=== PATIENT | male | born 1955 | race Caucasian/White ===

== ENCOUNTER 2019-12-20 08:26 | Emergency (ER) | payer OTHER ==
[2019-12-20] MEDS ORDERED: Sodium Chloride 0.9% 10 ML Syringe FLUSH PRN (08:35)
[2019-12-20] MEDS ORDERED: Sodium Chloride 0.9% 1,000 ML IV SCH (08:45)
--- NOTE | 2019-12-20 10:19 | EDM.PDOC ---
ED HPI GENERAL MEDICAL PROBLEM - General Chief Complaint: Neuro Symptoms/Deficits Stated Complaint: SOB/STROKE SYMPTOMS Time Seen by Provider: 12/20/19 08:35 Source of Information: Reports: Patient, Family History Limitations: Reports: Altered Mental Status - History of Present Illness INITIAL COMMENTS - FREE TEXT/NARRATIVE: The patient presents by taxi cab from [place]. The driver utility worker said the patient's called and arranged for him to bring the patient to the hospital. My nurse called his and she said he has not felt right since September. At that time he was checked for COVID 19 and it was negative. He still has not felt right and this past few weeks he was in higher elevation in [place] and [place]. Now he is in lower elevations and is still not feeling right. She did not here from him all day yesterday and usually he will call his son or her. This morning he texted and said he did not feel right this morning. She then arranged transport to the hospital. When he arrived he was sleepy and did not answer questions well. He was weak all over. My nurse thought he may have had some left sided facial droop but when I examined him that was gone. He said he did have chest pain for the past 3 days. I did a sternal rub to wake him up and he said that made it worse. He has no health problems and he is not on any medications. He does have a cough but denies fever. He has no abdominal pain, nausea, vomiting or diarrhea. Onset: Gradual Duration: Day(s): Location: Reports: Chest Quality: Reports: Sharp Severity: Mild Improves with: Reports: None Worsens with: Reports: None Associated Symptoms: Reports: Chest Pain, Cough. Denies: Fever/Chills, Headaches, Nausea/Vomiting, Shortness of Breath Right Chest Pain Score (Numeric/FACES): 5 - Related Data Allergies Allergy/AdvReac Type Severity Reaction Status Date / Time Unable to Assess Allergy Unverified 12/20/19 08:43 Home Meds: Home Meds . [Unable to Verify Home Med List] 12/20/19 [History] Past Medical History - Infectious Disease History Infectious Disease History: Reports: Novel Coronavirus Social & Family History - Tobacco Use Tobacco Use Status *Q: Never Tobacco User - Recreational Drug Use Recreational Drug Use: No ED ROS GENERAL - Review of Systems Review Of Systems: See Below Constitutional: Reports: Malaise, Weakness, Fatigue. Denies: Fever, Chills HEENT: Reports: No Symptoms Respiratory: Reports: Cough. Denies: Shortness of Breath Cardiovascular: Reports: Chest Pain Endocrine: Reports: Fatigue GI/Abdominal: Reports: No Symptoms : Reports: No Symptoms ED EXAM, NEURO - Physical Exam Exam: See Below Exam Limited By: No Limitations General Appearance: Alert, No Apparent Distress Ears: Normal External Exam Nose: Normal Inspection Head Exam: Atraumatic, Normocephalic Neck: Normal Inspection Respiratory/Chest: No Respiratory Distress, Lungs Clear, Normal Breath Sounds Cardiovascular: Regular Rate, Rhythm, No Edema, No Murmur GI/Abdominal: Soft, Non-Tender, No Organomegaly, No Mass Neurological: Alert, No Motor/Sensory Deficits, Oriented x 3 #1 Interpretation EKG Date: 12/20/19 Time: 08:45 Rhythm: NSR Rate (Beats/Min): 79 [place]: Normal P-Wave: Present QRS: Normal ST-T: Normal QT: Normal Course - Vital Signs Last Recorded V/S: Last Vital Signs Temp 97.9 F 12/20/19 08:38 Pulse 85 12/20/19 08:38 Resp 16 12/20/19 08:38 BP 171/113 H 12/20/19 08:38 Pulse Ox 95 12/20/19 08:38 - Orders/Labs/Meds Orders: Active Orders 24 hr Category Date Time Status Cardiac Monitoring [RC] . DIRECTED Care 12/20/19 08:35 Active EKG Documentation Completion [RC] STAT Care 12/20/19 08:36 Active Insert Concepcion Catheter [Insert Urinary Catheter] [OM.PC] Care 12/20/19 09:15 Ordered Stat Oxygen Therapy [RC] PRN Care 12/20/19 08:35 Active Peripheral IV Care [RC] . DIRECTED Care 12/20/19 08:36 Active Urinary Catheter Assessment [RC] ASDIRECTED Care 12/20/19 09:15 Active Chest 1V Frontal [CR] Stat Exams 12/20/19 08:36 Taken Head wo Cont [CT] Stat Exams 12/20/19 08:36 Taken CULTURE BLOOD [BC] Stat Lab 12/20/19 09:00 Received CULTURE BLOOD [BC] Stat Lab 12/20/19 09:05 Received Sodium Chloride 0.9% [Normal Saline] 1,000 ml Med 12/20/19 08:45 Active IV ASDIRECTED Sodium Chloride 0.9% [Saline Flush] Med 12/20/19 08:35 Active 10 ml FLUSH ASDIRECTED PRN Blood Culture x2 Reflex Set [OM.PC] Stat Ot 12/20/19 08:37 Ordered Peripheral IV Insertion Adult [OM.PC] Stat Oth 12/20/19 08:35 Ordered Medication Orders Sodium Chloride (Normal Saline) 1,000 mls @ 125 mls/hr IV ASDIRECTED JYOTI Last Admin: 12/20/19 08:47 Dose: 125 mls/hr Documented by: DAMI Sodium Chloride (Saline Flush) 10 ml FLUSH ASDIRECTED PRN PRN Reason: Keep Vein Open Last Admin: 12/20/19 08:47 Dose: 10 ml Documented by: DAMI Labs: Laboratory Tests 12/20/19 12/20/19 12/20/19 Range/Units 08:35 08:35 08:35 WBC 4.67 (4.23-9.07) K/mm3 RBC 5.30 (4.63-6.08) M/mm3 Hgb 15.9 (13.7-17.5) gm/dl Hct 47.6 (40.1-51.0) % MCV 89.8 (79.0-92.2) fl MCH 30.0 (25.7-32.2) pg MCHC 33.4 (32.2-35.5) g/dl RDW Std Deviation 44.2 H (35.1-43.9) fL Plt Count 164 (163-337) K/mm3 MPV 9.7 (9.4-12.3) fl Neut % (Auto) 51.7 (34.0-67.9) % Lymph % (Auto) 23.3 (21.8-53.1) % [place] % (Auto) 22.9 H (5.3-12.2) % Eos % (Auto) 1.3 (0.8-7.0) Baso % (Auto) 0.6 (0.1-1.2) % Neut # (Auto) 2.41 (1.78-5.38) K/mm3 Lymph # (Auto) 1.09 L (1.32-3.57) K/mm3 [place] # (Auto) 1.07 H (0.30-0.82) K/mm3 Eos # (Auto) 0.06 (0.04-0.54) K/mm3 Baso # (Auto) 0.03 (0.01-0.08) K/mm3 Manual Slide Review Normal smear PT 11.2 (9.7-12.0) SECONDS INR 1.05 APTT 28.9 (21.7-31.4) SECONDS D-Dimer, Quantitative 1.09 H (0.19-0.50) mg/L Sodium 139 (136-145) mEq/L Potassium 4.3 (3.5-5.1) mEq/L Chloride 105 (98-107) mEq/L Carbon Dioxide 25 (21-32) mEq/L Anion Gap 13.3 (5-15) BUN 13 (7-18) mg/dL Creatinine 1.2 (0.7-1.3) mg/dL Est Cr Clr Drug Dosing TNP Estimated GFR (MDRD) > 60 (>60) mL/min BUN/Creatinine Ratio 10.8 L (14-18) Glucose 135 H (80-115) mg/dL Lactic Acid (0.4-2.0) mmol/L Calcium 8.8 (8.5-10.1) mg/dL Magnesium 1.8 (1.8-2.4) mg/dl Ferritin (26-388) ng/ml Total Bilirubin 0.4 (0.2-1.0) mg/dL AST 18 (15-37) U/L ALT 33 (16-63) U/L Alkaline Phosphatase 98 (46-116) U/L Lactate Dehydrogenase 135 (85-227) U/L Troponin I < 0.017 (0.00-0.056) ng/mL C-Reactive Protein 1.0 (<1.0) mg/dL Total Protein 7.0 (6.4-8.2) g/dl Albumin 3.7 (3.4-5.0) g/dl Globulin 3.3 gm/dL Albumin/Globulin Ratio 1.1 (1-2) TSH 3rd Generation (0.358-3.74) uIU/mL Urine Opiates Screen (WVZBYJ=300) Ur Buprenorphine Scrn (CUTOFF=10) Ur Oxycodone Screen (UZA4RU=793) Urine Methadone Screen (QWE4BL=519) Ur Propoxyphene Screen (NOHIAE=597) Ur Barbiturates Screen (QMRPTK=324) Ur Tricyclics Screen (YTSYGO=549) Ur Phencyclidine Scrn (CUTOFF=25) Ur Amphetamine Screen (DUENFX=624) U Methamphetamines Scrn (DJQVKK=583) U Benzodiazepines Scrn (IPAFKZ=858) U Cocaine Metab Screen (ODADZS=420) U Marijuana (THC) Screen (CUTOFF=50) Ethyl Alcohol 0.00 (0.00) gm% SARS-CoV-2 RNA (LEXI) (NEGATIVE) 12/20/19 12/20/19 12/20/19 Range/Units 08:35 08:35 08:42 WBC (4.23-9.07) K/mm3 RBC (4.63-6.08) M/mm3 Hgb (13.7-17.5) gm/dl Hct (40.1-51.0) % MCV (79.0-92.2) fl MCH (25.7-32.2) pg MCHC (32.2-35.5) g/dl RDW Std Deviation (35.1-43.9) fL Plt Count (163-337) K/mm3 MPV (9.4-12.3) fl Neut % (Auto) (34.0-67.9) % Lymph % (Auto) (21.8-53.1) % [place] % (Auto) (5.3-12.2) % Eos % (Auto) (0.8-7.0) Baso % (Auto) (0.1-1.2) % Neut # (Auto) (1.78-5.38) K/mm3 Lymph # (Auto) (1.32-3.57) K/mm3 [place] # (Auto) (0.30-0.82) K/mm3 Eos # (Auto) (0.04-0.54) K/mm3 Baso # (Auto) (0.01-0.08) K/mm3 Manual Slide Review PT (9.7-12.0) SECONDS INR APTT (21.7-31.4) SECONDS D-Dimer, Quantitative (0.19-0.50) mg/L Sodium (136-145) mEq/L Potassium (3.5-5.1) mEq/L Chloride (98-107) mEq/L Carbon Dioxide (21-32) mEq/L Anion Gap (5-15) BUN (7-18) mg/dL Creatinine (0.7-1.3) mg/dL Est Cr Clr Drug Dosing Estimated GFR (MDRD) (>60) mL/min BUN/Creatinine Ratio (14-18) Glucose (80-115) mg/dL Lactic Acid 0.8 (0.4-2.0) mmol/L Calcium (8.5-10.1) mg/dL Magnesium (1.8-2.4) mg/dl Ferritin 333 (26-388) ng/ml Total Bilirubin (0.2-1.0) mg/dL AST (15-37) U/L ALT (16-63) U/L Alkaline Phosphatase (46-116) U/L Lactate Dehydrogenase (85-227) U/L Troponin I (0.00-0.056) ng/mL C-Reactive Protein (<1.0) mg/dL Total Protein (6.4-8.2) g/dl Albumin (3.4-5.0) g/dl Globulin gm/dL Albumin/Globulin Ratio (1-2) TSH 3rd Generation 1.108 (0.358-3.74) uIU/mL Urine Opiates Screen (JUWRMQ=783) Ur Buprenorphine Scrn (CUTOFF=10) Ur Oxycodone Screen (PYU7ZT=752) Urine Methadone Screen (EOV8PQ=739) Ur Propoxyphene Screen (TKGNYY=275) Ur Barbiturates Screen (QGCCYW=999) Ur Tricyclics Screen (ZWXUCF=361) Ur Phencyclidine Scrn (CUTOFF=25) Ur Amphetamine Screen (VNVMDN=417) U Methamphetamines Scrn (ROQLVP=444) U Benzodiazepines Scrn (XXMPNR=910) U Cocaine Metab Screen (ECAGPS=623) U Marijuana (THC) Screen (CUTOFF=50) Ethyl Alcohol (0.00) gm% SARS-CoV-2 RNA (LEXI) (NEGATIVE) 12/20/19 12/20/19 Range/Units 08:51 09:15 WBC (4.23-9.07) K/mm3 RBC (4.63-6.08) M/mm3 Hgb (13.7-17.5) gm/dl Hct (40.1-51.0) % MCV (79.0-92.2) fl MCH (25.7-32.2) pg MCHC (32.2-35.5) g/dl RDW Std Deviation (35.1-43.9) fL Plt Count (163-337) K/mm3 MPV (9.4-12.3) fl Neut % (Auto) (34.0-67.9) % Lymph % (Auto) (21.8-53.1) % [place] % (Auto) (5.3-12.2) % Eos % (Auto) (0.8-7.0) Baso % (Auto) (0.1-1.2) % Neut # (Auto) (1.78-5.38) K/mm3 Lymph # (Auto) (1.32-3.57) K/mm3 [place] # (Auto) (0.30-0.82) K/mm3 Eos # (Auto) (0.04-0.54) K/mm3 Baso # (Auto) (0.01-0.08) K/mm3 Manual Slide Review PT (9.7-12.0) SECONDS INR APTT (21.7-31.4) SECONDS D-Dimer, Quantitative (0.19-0.50) mg/L Sodium (136-145) mEq/L Potassium (3.5-5.1) mEq/L Chloride (98-107) mEq/L Carbon Dioxide (21-32) mEq/L Anion Gap (5-15) BUN (7-18) mg/dL Creatinine (0.7-1.3) mg/dL Est Cr Clr Drug Dosing Estimated GFR (MDRD) (>60) mL/min BUN/Creatinine Ratio (14-18) Glucose (80-115) mg/dL Lactic Acid (0.4-2.0) mmol/L Calcium (8.5-10.1) mg/dL Magnesium (1.8-2.4) mg/dl Ferritin (26-388) ng/ml Total Bilirubin (0.2-1.0) mg/dL AST (15-37) U/L ALT (16-63) U/L Alkaline Phosphatase (46-116) U/L Lactate Dehydrogenase (85-227) U/L Troponin I (0.00-0.056) ng/mL C-Reactive Protein (<1.0) mg/dL Total Protein (6.4-8.2) g/dl Albumin (3.4-5.0) g/dl Globulin gm/dL Albumin/Globulin Ratio (1-2) TSH 3rd Generation (0.358-3.74) uIU/mL Urine Opiates Screen Negative (TVMKNZ=152) Ur Buprenorphine Scrn Negative (CUTOFF=10) Ur Oxycodone Screen Negative (FZF3LX=618) Urine Methadone Screen Negative (TCC5WZ=224) Ur Propoxyphene Screen Negative (OBPPSN=780) Ur Barbiturates Screen Negative (CZZKND=844) Ur Tricyclics Screen Negative (KRXQBT=055) Ur Phencyclidine Scrn Negative (CUTOFF=25) Ur Amphetamine Screen Negative (FAAHKR=167) U Methamphetamines Scrn Negative (MAJTGN=912) U Benzodiazepines Scrn Negative (FIXHLQ=652) U Cocaine Metab Screen Negative (BBBTZJ=918) U Marijuana (THC) Screen Negative (CUTOFF=50) Ethyl Alcohol (0.00) gm% SARS-CoV-2 RNA (LEXI) Positive H (NEGATIVE) Meds: Medications Generic Name Dose Route Start Last Admin Trade Name Freq PRN Reason Stop Dose Admin Sodium Chloride 1,000 mls @ 125 mls/hr 12/20/19 08:45 12/20/19 08:47 Normal Saline IV 125 mls/hr ASDIRECTED JYOTI Administration Sodium Chloride 10 ml 12/20/19 08:35 12/20/19 08:47 Saline Flush FLUSH 10 ml ASDIRECTED PRN Administration Keep Vein Open - Re-Assessments/Exams Free Text/Narrative Re-Assessment/Exam: 12/20/19 10:23 A stroke alert was called and I went right into the room. His last time known well was about 36 hours ago. I ordered an IV saline lock, CXR, labs, CT of his head, COVID 19, blood cultures and lactic acid. His EKG shows a NSR with no acute changes. His CXR looks good. The CT of his head shows nothing acute. His CBC and CMP look good. His D-dimer is elevated at 1.09. His lactic acid is normal. His troponin is negative. His TSH is normal. His UDS was negative and his ETOH is 0. His COVID 19 is positive. 12/20/19 11:24 He feels better and would like to leave. His CXR looks good and his oxygen saturations are normal. I will discharge him home. Departure - Departure Time of Disposition: 11:25 Disposition: Home, Self-Care 01 Condition: Good Clinical Impression: COVID-19 - Discharge Information *PRESCRIPTION DRUG MONITORING PROGRAM REVIEWED*: Not Applicable *COPY OF PRESCRIPTION DRUG MONITORING REPORT IN PATIENT NKECHI: Not Applicable Referrals: PCP,Not In Area [Primary Care Provider] - Forms: ED Department Discharge Additional Instructions: Drink plenty of fluids. 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 If your oxygen saturations are consistently below 90% please return. Take motrin or tylenol for any fever. Sepsis Event Note (ED) - Evaluation Sepsis Screening Result: No Definite Risk - Focused Exam Vital Signs: Vital Signs Temp Pulse Resp BP Pulse Ox 12/20/19 08:38 97.9 F 85 16 171/113 H 95 - My Orders Last 24 Hours: My Active Orders 12/20/19 08:35 Cardiac Monitoring [RC] . DIRECTED Oxygen Therapy [RC] PRN Sodium Chloride 0.9% [Saline Flush] 10 ml FLUSH ASDIRECTED PRN Peripheral IV Insertion Adult [OM.PC] Stat 12/20/19 08:36 EKG Documentation Completion [RC] STAT Peripheral IV Care [RC] . DIRECTED Chest 1V Frontal [CR] Stat Head wo Cont [CT] Stat 12/20/19 08:37 Blood Culture x2 Reflex Set [OM.PC] Stat 12/20/19 08:45 Sodium Chloride 0.9% [Normal Saline] 1,000 ml IV ASDIRECTED 12/20/19 09:00 CULTURE BLOOD [BC] Stat 12/20/19 09:05 CULTURE BLOOD [BC] Stat 12/20/19 09:15 Insert Concepcion Catheter [Insert Urinary Catheter] [OM.PC] Stat Urinary Catheter Assessment [RC] ASDIRECTED - Assessment/Plan Last 24 Hours: My Active Orders 12/20/19 08:35 Cardiac Monitoring [RC] . DIRECTED Oxygen Therapy [RC] PRN Sodium Chloride 0.9% [Saline Flush] 10 ml FLUSH ASDIRECTED PRN Peripheral IV Insertion Adult [OM.PC] Stat 12/20/19 08:36 EKG Documentation Completion [RC] STAT Peripheral IV Care [RC] . DIRECTED Chest 1V Frontal [CR] Stat Head wo Cont [CT] Stat 12/20/19 08:37 Blood Culture x2 Reflex Set [OM.PC] Stat 12/20/19 08:45 Sodium Chloride 0.9% [Normal Saline] 1,000 ml IV ASDIRECTED 12/20/19 09:00 CULTURE BLOOD [BC] Stat 12/20/19 09:05 CULTURE BLOOD [BC] Stat 12/20/19 09:15 Insert Concepcion Catheter [Insert Urinary Catheter] [OM.PC] Stat Urinary Catheter Assessment [RC] ASDIRECTED
--- NOTE | 2019-12-20 14:09 | CR ---
PROCEDURE INFORMATION: Exam: XR Chest, 1 View Exam date and time: 12/20/2019 8:27 AM Age: 64 years old Clinical indication: Chest pain TECHNIQUE: Imaging protocol: XR of the chest Views: 1 view. COMPARISON: No relevant prior studies available. FINDINGS: Lungs: No consolidation. Pleural space: No significant visible pleural effusion. No pneumothorax. Heart/Mediastinum: No significant cardiomegaly. Bones/joints: No acute finding. IMPRESSION: No acute cardiopulmonary finding. Thank you for allowing us to participate in the care of your patient. Dictated and Authenticated by: Madison Nobles MD 12/20/2019 9:53 AM Central Time ([place] & [place]) [facility]Matthew
--- NOTE | 2019-12-20 14:11 | CT ---
"PROCEDURE INFORMATION: Exam: CT Head Without Contrast Exam date and time: 12/20/2019 8:35 AM Age: 64 years old Clinical indication: Weakness, extremity; Left; Patient HX: Lt sided weakness TECHNIQUE: Imaging protocol: Computed tomography of the head without contrast. Radiation optimization: All CT scans at this facility use at least one of these dose optimization techniques: automated exposure control; mA and/or kV adjustment per patient size (includes targeted exams where dose is matched to clinical indication); or iterative reconstruction. Other technique: STROKE PROTOCOL was implemented. COMPARISON: No relevant prior studies available. FINDINGS: Brain: There is no acute intracranial hemorrhage. No extra-axial fluid collection. No evidence of acute infarct. Collazo white differentiation is intact. There is no evidence of mass. There is no mass effect or midline shift. Cerebral ventricles: No ventriculomegaly. Bones/joints: No acute fracture. Paranasal sinuses: Visualized sinuses are unremarkable. No fluid levels. Mastoid air cells: No significant mastoid effusion. Soft tissues: Unremarkable as visualized. IMPRESSION: No evidence of acute intracranial abnormality. ASSESSMENT: ASPECTS ([place] Stroke Program Early CT Score) is 10. Thank you for allowing us to participate in the care of your patient. PARKER BANG | Final Radiology Report CONFIDENTIALITY STATEMENT This report is intended only for use by the referring physician, and only in accordance with law. If you received this in error, call [phone]. Page 2 of 2 Dictated and Authenticated by: Madison Nobles MD 12/20/2019 9:53 AM Central Time ([place] & [place]) [facility]"
== END 2019-12-20 11:50 | disposition home or self-care (01) ==
LOC: JD.ED 08:26
DX: U07.1 COVID-19 (principal)
CPT/HCPCS: 36415; 70450; 71045; 80053; 80306; 80307; 82728; 83605; 83615; 83735; 84443; 84484; 85025; 85379; 85610; 85730; 86140; 87040; 87635; 93005; 99285; J7030; 93010; 99283; U0002